=== PATIENT | male | born 1995 | race Caucasian/White ===

== ENCOUNTER 2021-05-09 15:32 | Emergency (ER) | payer BC ==
[2021-05-09 15:41] VITALS: BP 133/83; PULSE 82; RESP 18; TEMP 97.4
[2021-05-09] MEDS ORDERED: ACETAMINOPHEN TAB 500 MG TAB PO STA (16:23)
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
--- NOTE | 2021-05-09 16:59 | XR ---
EXAMINATION TYPE: XR wrist complete LT DATE OF EXAM: 05/09/2021 COMPARISON: NONE HISTORY: Wrist pain TECHNIQUE: 4 views FINDINGS: Distal radius and ulna appear intact carpal bones appear intact. Axial fracture nor disloca tion. There are no erosions. Metacarpals are intact. IMPRESSION: Negative left wrist exam. No fracture seen
--- NOTE | 2021-05-09 17:00 | XR ---
EXAMINATION TYPE: XR humerus RT DATE OF EXAM: 05/09/2021 COMPARISON: NONE HISTORY: Pain TECHNIQUE: 4 views FINDINGS: The elbow joint appears intact. Shoulder joint appears intact. I see no fracture nor disloc ation. Soft tissues appear normal. The visualized right ribs appear intact. IMPRESSION: Negative right humerus exam.
[2021-05-09] MEDS ORDERED: KETOROLAC 15 MG/ML 1 ML VIAL IM STA (17:09)
== END 2021-05-09 19:12 | disposition home or self-care (01) ==
LOC: EC 15:32
DX: M25.532 Pain in left wrist (principal); M79.645 Pain in left finger(s); V28.4XXA Motorcycle driver injured in noncollision transport accident in traffic accident, initial encounter; Y92.410 Unspecified street and highway as the place of occurrence of the external cause
CPT/HCPCS: 29125; 99284

== ENCOUNTER → 2024-07-05 | Outpatient (CLI) | payer OTHER ==
--- NOTE | 2024-07-05 09:45 | MR ---
EXAMINATION TYPE: MR ankle RT wo con DATE OF EXAM: 07/05/2024 9:15 AM COMPARISON: No radiographic correlation available CLINICAL INDICATION: Male, 29 years old with history of M76.61 ACHILLES TENDINITIS, RIGHT LEG, Rt ank le pain near ball of foot x1 month - attn: Achilles Tendon TECHNIQUE: Multiplanar, multisequence images of the right ankle were obtained without IV contrast. FINDINGS: There is a tiny posterior calcaneal spur at the Achilles insertion. Trace osseous edema at this site. . Trace retrocalcaneal bursal effusion. No significant abnormal thickening or tear identified within the Achilles tendon itself. Origin of the plantar fascia is intact. The tibiotalar joint as well as the subtalar joints appear intact. There is focal increased fluid signal at the tip of the anterior calcaneal process and additional 5 m m corticated ossific density at the superior calcaneal cuboidal joint just adjacent. Preserved fatty signal within the sinus Tarsi. The tarsal tunnel is clear. There is an intrasubstance tear at the insertion of the anterior tibial tendon at the base of the fir st metatarsal along the plantar aspect of foot, refer to coronal image 6 and sagittal image 12. Other puentes, the anterior extensor tendons as well as the syndesmosis appear intact. Trace fluid along the posterior tibial tendon. Medial flexor tendons otherwise appear intact. The peroneal tendons appear intact as does the ATFL, PTFL, and CFL. No acute or healing fractures seen. IMPRESSION: 1. Tiny posterior heel spur at the Achilles insertion shows subtle osseous edema. Adjacent trace effu mariano in the retrocalcaneal bursa. Findings suggest some developing insertional tendinopathy. No signi ficant tendinosis or Achilles tear is identified. 2. Irregularity and increased signal at the tip of the anterior calcaneal process. Given the adjacent 5 mm corticated ossific density, we suspect sequela of old injury with a chronic ununited fracture f ragment. The edema suggests possible ongoing movement at the fracture site. 3. Intrasubstance tear at the insertion of the tibialis anterior at the base of the first metatarsal at the plantar aspect of the foot. [facility], , 07/05/2024 9:43 AM
== END | disposition home or self-care (01) ==
LOC: RADMRIMAIN 08:05
PROVIDERS: ATTEND Emergency Medicine
DX: S86.219A Strain of muscle(s) and tendon(s) of anterior muscle group at lower leg level, unspecified leg, initial encounter (principal); M76.61 Achilles tendinitis, right leg; M77.31 Calcaneal spur, right foot; M25.471 Effusion, right ankle; M67.874 Other specified disorders of tendon, left ankle and foot; X58.XXXA Exposure to other specified factors, initial encounter